=== PATIENT | male | born 1965 | race Caucasian/White ===

== ENCOUNTER → 2023-06-30 | Outpatient (CLI) | payer BC ==
--- NOTE | 2023-08-04 06:18 | CE ---
CARDIAC ELECTROPHYSIOLOGY REPORT STUDY PERFORMED: Event monitor. FINDINGS: The patient was monitored for 30 days. The baseline rhythm appeared to be sinus mechanism. The patient did have multiple episodes of sinus tachycardia. No evidence of sinus pause or sinus arrest seen. No evidence of any advanced AV block seen. CONCLUSION: 1. This is a 30-day event monitor. 2. The baseline rhythm appeared to be sinus mechanism. 3. The patient did have multiple episodes of sinus tachycardia. MMODL / IJN: [id number] /
== END | disposition home or self-care (01) ==
LOC: RADECHMAIN 13:35
PROVIDERS: ATTEND Psychiatry & Neurology Neurology
DX: R00.0 Tachycardia, unspecified (principal); G45.9 Transient cerebral ischemic attack, unspecified; I48.21 Permanent atrial fibrillation
CPT/HCPCS: 93270